=== PATIENT | male | born 1935 | race Caucasian/White ===

== ENCOUNTER 2016-10-16 03:32 | Emergency (ER) | payer MEDICARE, OTHER ==
[2016-10-16 03:38] VITALS: BP 147/82
[2016-10-16] MEDS ORDERED: DEXAMETHASONE SOD PHOSPHATE 10 MG/ML VIAL IM ONE (03:56)
[2016-10-16] MEDS ORDERED: METHYLPREDNISOLONE ACETATE 80 MG/ML VIAL IM ONE (03:56)
[2016-10-16] MEDS ORDERED: DEXAMETHASONE SOD PHOSPHATE 10 MG/ML VIAL ONE (04:03)
[2016-10-16] MEDS ORDERED: METHYLPREDNISOLONE ACETATE 80 MG/ML VIAL ONE (04:03)
--- NOTE | 2016-10-16 04:04 | ERNOTE ---
Lower Extremity HPI - General Lower Extremities Pain: hip: left Time Seen by Provider: 10/16/16 03:54 Source: patient Exam Limitations: no limitations - Immun/Allergies/Home Medications Immunizations: IMMUNIZATION HX Immunizations Up to Date Yes History of Influenza Vaccine Yes Hx Pneumococcal Vaccination More Information Required Allergies/Adverse Reactions: Allergies Allergy/AdvReac Type Severity Reaction Status Date / Time oxycodone [From Percocet] Allergy Verified 10/16/16 03:38 Home Medications: HOME MEDICATIONS Amlodipine Besylate [Norvasc] 2.5 mg PO DAILY 10/16/16 [Last Taken Unknown] Aspirin [Aspir-Low] 81 mg PO DAILY 10/16/16 [Last Taken Unknown] Budesonide/Formoterol Fumarate [Symbicort 80-4.5 Mcg Inhaler] 10.2 gm IH DAILY 10/16/16 [Last Taken Unknown] Cyclobenzaprine HCl 10 mg PO PRN 10/16/16 [Last Taken Unknown] Diclofenac Sodium [Diclofenac 1% Topical Gel] 1 appl TP QID 10/16/16 [Last Taken Unknown] Diclofenac Sodium [Voltaren] 100 gm TP QID 10/16/16 [Last Taken Unknown] Fluticasone Furoate [Arnuity Ellipta] 100 mcg IH HS 10/16/16 [Last Taken Unknown ] Hydrochlorothiazide [Hydrodiuril] 25 mg PO DAILY 10/16/16 [Last Taken Unknown] Lisinopril [Zestril] 40 mg PO DAILY 10/16/16 [Last Taken Unknown] Loratadine [Claritin] 10 mg PO DAILY 10/16/16 [Last Taken Unknown] Montelukast Sodium [Singulair] 10 mg PO DAILY 10/16/16 [Last Taken Unknown] Pioglitazone HCl [Actos] 30 mg PO DAILY 10/16/16 [Last Taken Unknown] Potassium Chloride [Klor-Con] 20 meq PO DAILY 10/16/16 [Last Taken Unknown] Simvastatin [Zocor] 80 mg PO DAILY 10/16/16 [Last Taken Unknown] Triamcinolone Acetonide [Kenalog 0.5%] 1 appl TP BID 10/16/16 [Last Taken Unknown] - History of Present Illness Narrative: Pt states his "hip" has been bothering him since Saturday. He points to his left low back. Occurred: yesterday Method of Injury: Reports: unknown Modifying Factors - (Improves): Reports: immobilization Modifying Factors - (Worsens): Reports: movement Subsequent Symptoms: Denies: sensory loss, bowel/bladder problem Review of Systems - Review of Systems Constitutional: Absent: recent illness, fever EYE: Present: no symptoms reported ENT: Absent: nose congestion, sore throat Respiratory: Absent: shortness of breath, cough Cardiology: Absent: chest pain, edema Gastrointestinal/Abdominal: Absent: nausea, vomiting Genitourinary: Absent: frequency, pain Musculoskeletal: Present: See HPI Skin: Absent: rash Neurological: Present: weakness - due to pain. Absent: numbness, tingling Endocrine: Present: no symptoms reported Hematologic/Lymphatic: Present: no symptoms reported Psych: Present: no symptoms reported - Patient's Past Medical History Patient History - Medical: Diabetes Type 2 Patient History - Cardiac/Respiratory: No pertinent hx Patient History - Cancer: No Hx of Cancer Patient History - Surgical Procedures: No surgical history Patient History - Other: None - Social History Living Situations: home Abuse History: No History of abuse Psych History: No pertinent hx Smoking Status: Former smoker Have you smoked in the past 12 months: No Alcohol Use: none Drug Use: none - Immunizations Immunizations Up to Date: Yes Hx Pneumococcal Vaccination: More Information Required to Determine History of Influenza Vaccine: Yes Physical Exam - Physical Exam General Appearance: Present: wd/wn, alert, no apparent distress Eye Exam: Normal inspection: bilateral Neck: Present: normal inspection, nontender Respiratory: Present: no respiratory distress, no accessory muscle use Back Exam: Present: normal inspection, no CVA tenderness, no vertebral tenderness, other - left SI tenderness Extremity Exam: Present: normal range of motion, no edema, other - b/l knee enlargement Neurological Exam: Present: alert, oriented, normal mood/affect, no motor/ sensory deficits Skin Exam: Present: normal color, warm/dry Lymphatic Exam: Present: no adenopathy ED Progress - Vital Signs Vital Signs: Vital Signs 10/16/16 03:33 Temperature 36.5 C Pulse Rate 87 Respiratory 14 Rate Blood Pressure 147/82 O2 Sat by Pulse 93 Oximetry - Progress/Reassessment Chief Complaint: Hip Pain/Injury Departure Clinical Impression: Sacroiliac joint pain - Departure Disposition: Home self-care Condition: Good Instructions: Sacroiliac Joint Dysfunction Additional Instructions: you may use your diclofenac jel on the area 1-2 times a day for 3-4 days. See your regular doctor if not improving in 3-5 days Referrals: Eleazar Santos MD [Primary Care Provider] -
== END 2016-10-16 04:28 | disposition home or self-care (01) ==
LOC: ER 03:32
DX: M53.3 Sacrococcygeal disorders, not elsewhere classified (principal); E11.9 Type 2 diabetes mellitus without complications; Z87.891 Personal history of nicotine dependence

== ENCOUNTER 2019-11-15 22:22 | Observation (INO) ==
--- NOTE | 2019-11-15 22:56 | ERNOTE ---
Dyspnea - General Presenting Symptoms: shortness of breath Time Seen by Provider: 11/15/19 22:45 Source: patient Exam Limitations: no limitations - Immun/Allergies/Home Medications Immunizations: IMMUNIZATION HX Immunizations Up to Date Yes History of Influenza Vaccine No Hx Pneumococcal Vaccination No Allergies/Adverse Reactions: Allergies naproxen [From Anaprox] Allergy (Mild, Verified 11/16/19 04:20) itching acetaminophen [From Darvocet-N 100] Allergy (Verified 11/16/19 04:20) itching metformin Allergy (Verified 11/16/19 04:20) unknown intolerance oxycodone [From Percocet] Allergy (Verified 11/16/19 04:20) propoxyphene [From Darvocet-N 100] Allergy (Verified 11/16/19 04:20) itching Home Medications: HOME MEDICATIONS Budesonide/Formoterol Fumarate [Symbicort 80-4.5 Mcg Inhaler] 10.2 gm IH DAILY 10/16/16 [Last Taken Unknown] Fluticasone Furoate [Arnuity Ellipta] 100 mcg IH HS 10/16/16 [Last Taken Unknown] Loratadine [Claritin] 10 mg PO DAILY 10/16/16 [Last Taken Unknown] pioglitazone 30 mg tablet 30 mg PO DAILY #90 tab 05/19/18 [Last Taken Unknown] ipratropium 0.5 mg-albuterol 3 mg (2.5 mg base)/3 mL nebulization soln 3 ml IH Q6H PRN #180 ml 09/05/18 [Last Taken Unknown] losartan 50 mg tablet 50 mg PO DAILY #90 tab 09/11/18 [Last Taken Unknown] potassium chloride 20 mEq tablet,extended release(part/cryst) 20 meq PO DAILY #0.1 tab 09/11/18 [Last Taken Unknown] montelukast 10 mg tablet See Rx Instructions .ROUTE .COMPLEX #30 tablet 12/09/18 [Last Taken Unknown] hydrochlorothiazide 25 mg tablet See Rx Instructions .ROUTE .COMPLEX #30 tablet 02/11/19 [Last Taken Unknown] albuterol sulfate 90 mcg/actuation breath activated powder inhaler 180 mcg IH Q4H PRN #1 ea 04/27/19 [Last Taken Unknown] codeine 10 mg-guaifenesin 100 mg/5 mL oral liquid 5 ml PO Q6H PRN #120 ml 04/27/19 [Last Taken Unknown] amlodipine 2.5 mg tablet 2.5 mg PO DAILY #90 tab 07/20/19 [Last Taken Unknown] predniSONE [Prednisone] 1 tab PO TID #15 tab 11/10/19 [Last Taken Unknown] Triamcinolone Acetonide [Kenalog 0.1% Cream] 1 applic TOPICAL TID 11/15/19 [Last Taken Unknown] - History of Present Illness Narrative: Patient states that he has been having shortness of breath he states he was here 2 days ago diagnosed with a asthma attack given 3 days of prednisone. States he has 1 more day left. He continues to have a nonproductive cough and have respiratory symptoms. He denies fever. Severity: mild, moderate Frequency of episodes: Reports: occassional episodes Modifying Factors (Worsens): Reports: coughing Prior Treatment: Reports: recently seen, treated by physician Review of Systems - Review of Systems Constitutional: Present: recent illness. Absent: fever, chills ENT: Absent: nose congestion, nasal drainage Respiratory: Present: See HPI, shortness of breath, cough Cardiology: Absent: chest pain Gastrointestinal/Abdominal: Absent: nausea, vomiting Genitourinary: Absent: frequency, dysuria Musculoskeletal: Absent: back pain, muscle pain Skin: Absent: rash Neurological: Absent: headache, dizziness/light-headedness Endocrine: Absent: excessive sweating Medical History (Last Reviewed 11/15/19 @ 22:53 by Julio Vincent DO) Renal insufficiency (Chronic) DJD (degenerative joint disease) of knee (Chronic) Type II diabetes mellitus (Chronic) Asthma, mild persistent Cardiomegaly Chronic upper back pain Diabetes type 2, controlled Diabetic foot ulcer Epistaxis Gout Hernia, hiatal Hyperlipidemia Hypertension Renal failure Rhinitis, chronic Squamous cell carcinoma of right ear Venous insufficiency of both lower extremities Surgical History: Surgical History (Last Reviewed 11/15/19 @ 22:54 by Julio Vincent DO) History of total knee arthroplasty (Acute) No history of previous surgery H/O total knee replacement Onset Date: ~11/2018 Family History: Family History (Last Reviewed 11/15/19 @ 22:54 by Julio Vincent DO) Mother Migraines Social History: (Last Reviewed 11/15/19 @ 22:54 by Julio Vincent DO) Social History: Marital status: household members: spouse current occupational status: retired Service: Yes Service comment: [employer] Tobacco: Smoking Status: Former smoker how long ago did patient quit smoking: was 4 PPD smoker, and 2 cans chew per day Alcohol: alcohol intake: former Substance Use: substance use type: does not use Dietary Habits: caffeine: Yes high-fat food intake: 3 or more times/day Exercise: Physical activity type: walking Physical Exam - Physical Exam General Appearance: Present: wd/wn, alert, no apparent distress Head Exam: Present: normal inspection, no evidence of injury Neck: Present: normal inspection, nontender, supple Respiratory: Present: no respiratory distress, normal breath sounds, lungs clear Cardiovascular/Chest: Present: no murmur, tachycardia Extremity Exam: Present: normal inspection, normal range of motion, no edema Neurological Exam: Present: alert, oriented, normal mood/affect, no motor/sensory deficits Skin Exam: Present: normal color, warm/dry Lymphatic Exam: Present: no adenopathy Progress - Results and Orders Patient's Lab Results:: I have reviewed the patient's lab results. Results and Orders: Laboratory Tests 11/15/19 11/15/19 11/15/19 23:10 23:10 23:10 WBC 10.1 Hgb 16.3 Hct 47.4 Plt Count 159 Neutrophils % 80.1 H Sodium 132 Potassium 3.3 L Chloride 96 L Carbon Dioxide 27.8 BUN 21 D Creatinine 1.43 H Est GFR (Non-Af Amer) 50 L D Random Glucose 145 H Lactic Acid, Venous 2.1 H Calcium 8.8 Total Bilirubin 0.9 AST 47 ALT 55 Troponin I Less than 0.017 B-Natriuretic Peptide 160 Laboratory Tests 11/16/19 01:13 SARS-CoV-2 (PCR) Detected - Vital Signs Patient's Vital Signs:: I have reviewed the patient's vital signs. Vital Signs: Vital Signs 11/15/19 22:25 Temperature 37.0 C Pulse Rate 103 H Respiratory Rate 20 Blood Pressure 148/79 O2 Sat by Pulse Oximetry 93 - EKG EKG #1 EKG: NSR, nonspecific ST T wave changes EKG read: Interp. by me - X-Ray X-Ray #1 X-Ray: chest Interpretation: Interp. by me X-ray Comments: There may be some early infiltrate in the right lower lobe. Cardiac silhouette appears normal. No pleural effusions, no pneumothorax. - CT/Ultrasound CT/Ultrasound Narrative: CTA chest. 1. Limited exam, no definite pulmonary embolism. 2. Atelectatic changes and nonspecific groundglass changes bilaterally. - Progress/Reassessment Chief Complaint: Dyspnea Progress:: Unchanged Progress Note-Subjective: 11/15/19 23:47 Patient is having increased shortness of breath with any activity, just to get out to the wheelchair to go to radiology. His respiratory rate is 21-25 and his oxygen saturations dropped to mid to high 80s when he has any activity. His blood pressures have remained elevated. 11/16/19 00:07 Patient's last 2 blood pressures are mildly high but much lower than previous, I had ordered hydralazine we will cancel that. D-dimer came back positive CTA was ordered. 11/16/19 01:[address] Bush about admission. He agrees with admission. We will COVID-[address] results suggesting groundglass appearance in bilateral bases and patient's overall respiratory complaints. Departure Clinical Impression: COVID-19 - Departure Disposition: Still a patient Condition: Stable
[2019-11-15 23:13] LABS: Hematocrit 47.4 % (42.0-52.0); Hemoglobin 16.3 gm/dL (13.5-18.0); Mean Cell Volume 88.9 fl (78-100); Mean Corpuscular Hemoglobin 30.6 pg (27-31); Mean Corpuscular Hgb Conc 34.4 g/dl (32-36); Mean Platelet Volume 10.2 fl (8-11.3); Neutrophil # 8.1 K/mm3 (1.3-6.0); Neutrophil % 80.1 % (42-75.0); Platelet Count 159 K/mm3 (150-450); Red Blood Count 5.33 M/mm3 (4.7-6.0); Red Cell Distribution Width 13.5 % (11.5-14.0); White Blood Count 10.1 K/mm3 (4.0-10.5)
[2019-11-15 23:32] LABS: Troponin I Less than 0.017 ng/mL (0.00-0.10)
[2019-11-15 23:34] LABS: ALT 55 U/L (19-67); AST 47 U/L (0-48); Albumin * 3.2 gm/dl (3.4-5.0); Alkaline Phosphatase * 63 U/L (50-170); Anion Gap 11.5 mmol/L (6.8-13.8); BNP * 160 pg/mL (5-650); BUN/Creatinine Ratio 14.7 (9.0-21.6); Bilirubin, Total 0.9 mg/dL (0.0-1.1); Blood Urea Nitrogen 21 mg/dL (6-23); Ca. Corrected For Albumin 9.1 mg/dL (8.4-10.2); Calcium * 8.8 mg/dL (7.9-10.9); Carbon Dioxide 27.8 mmol/L (24-32.6); Chloride 96 mmol/L (97-106); Glucose * 145 mg/dL (70-110); Potassium 3.3 mmol/L (3.4-4.6); Sodium 132 mmol/L (132-142); Total Protein 7.7 gm/dL (6.2-8.2)
[2019-11-15] MEDS ORDERED: hydrALAZINE HCL 20 MG/ML VIAL IV ONE (23:58)
[2019-11-16] MEDS ORDERED: ALBUTEROL SULFATE/IPRATROPIUM 3 ML NEBU IH PRN (12:31)
[2019-11-16] MEDS ORDERED: ALBUTEROL SULFATE 2.5 MG/0.5 ML VIAL.NEB IH PRN (12:31)
--- NOTE | 2019-11-16 12:55 | HP ---
Chief Complaint - Chief Complaint Date of Service: 11/16/19 Time of Service: 11:30 Chief Complaint: Nonproductive cough, shortness of breath History of Present Illness: Jerry Jeff is an 84-year-old male presented to ER earlier this morning with shortness of breath and intractable coughing. His cough is been nonproductive and he states he has been afebrile. He believes that he is having more difficulty smelling and tasting foods. The COVID-19 testing done in ER shows it is detected. He was admitted to room 126 earlier this morning. His admission vital signs show temperature of 37.0, BP 156/88, pulse has ranged from 78-98 since admission, respirations are 18-20 and unlabored, and O2 sat is 98%. Lab: His white count is normal at 10,100 with 80% neutrophils and no stabs. The hemoglobin is 16.3 g and hematocrit is 47.4%. The d-dimer was elevated slightly at 0.66. The electrolytes show sodium 132, chloride 96, CO2 of 27.8, and potassium at 3.3. Renal function studies show BUN is 21, creatinine 1.43, EGFR = 50, the LFTs are normal. Lactic acid was barely elevated at 2.1, the total protein is normal at 7.7 and albumin slightly low at 3.2. His initial chest x- ray is interpreted as no acute cardiopulmonary circumstance by the radiologist. The CT of the chest however shows pneumonia versus atelectasis in the right lower lobe. There was no PE detected on CT to explain the mildly elevated d- dimer. Exam shows no respiratory distress but with frequent dry hacking coughing. He is 98% on room air. I would put him in the moderate infection category for COVID-19. He is symptomatic. His risk factors for worsening include age of 84, COPD and asthma. He has essential hypertension and stage III chronic kidney disease. Medical History (Last Updated 11/16/19 @ 07:08 by Margie Negron RN) Asthma, mild persistent Cardiomegaly Chronic upper back pain Diabetes type 2, controlled Diabetic foot ulcer Epistaxis Gout Hernia, hiatal Hyperlipidemia Hypertension Renal failure Rhinitis, chronic Squamous cell carcinoma of right ear Venous insufficiency of both lower extremities DJD (degenerative joint disease) of knee Renal insufficiency Type II diabetes mellitus Surgical History: Surgical History (Last Reviewed 11/16/19 @ 07:08 by Margie Negron RN) History of total knee arthroplasty (Acute) H/O total knee replacement Onset Date: ~11/2018 Family History: Family History (Last Reviewed 11/16/19 @ 07:08 by Margie Negron RN) Mother Migraines Social History: (Last Reviewed 11/16/19 @ 07:11 by Margie Negron RN) Social History: Marital status: / lives independently: Yes household members: spouse, none current occupational status: retired Service: Yes Service comment: [employer] Tobacco: Smoking Status: Former smoker how long ago did patient quit smoking: was 4 PPD smoker, and 2 cans chew per day Alcohol: alcohol intake: former Substance Use: substance use type: does not use Dietary Habits: caffeine: Yes high-fat food intake: 3 or more times/day Exercise: Physical activity type: walking Review Of Systems (GEN) - Review of Systems Generalized/Overall Review: Present: Malaise EENTM: Present: No Symptoms Reported Respiratory: Present: Cough, Shortness of Breath Cardiac: Present: No Symptoms Reported Abdominal: Present: No Symptoms Reported Genitourinary: Present: No Symptoms Reported Musculoskeletal: Present: No Symptoms Reported Neurological: Present: No Symptoms Reported, Other - Decreased ability to smell or taste. Skin: Present: No Symptoms Reported Endocrine: Present: No Symptoms Reported Immunizations: IMMUNIZATION HX Immunizations Up to Date Yes History of Influenza Vaccine No Hx Pneumococcal Vaccination No Allergies/Adverse Reactions: Allergies Allergy/AdvReac Type Severity Reaction Status Date / Time naproxen [From Anaprox] Allergy Mild itching Verified 11/16/19 04:20 acetaminophen Allergy itching Verified 11/16/19 04:20 [From Darvocet-N 100] metformin Allergy unknown Verified 11/16/19 04:20 intolerance oxycodone [From Percocet] Allergy Verified 11/16/19 04:20 propoxyphene Allergy itching Verified 11/16/19 04:20 [From Darvocet-N 100] Home Medications: HOME MEDICATIONS Budesonide/Formoterol Fumarate [Symbicort 80-4.5 Mcg Inhaler] 10.2 gm IH DAILY 10/16/16 [Last Taken Unknown] Fluticasone Furoate [Arnuity Ellipta] 100 mcg IH HS 10/16/16 [Last Taken Unknown] Loratadine [Claritin] 10 mg PO DAILY 10/16/16 [Last Taken Unknown] pioglitazone 30 mg tablet 30 mg PO DAILY #90 tab 05/19/18 [Last Taken Unknown] ipratropium 0.5 mg-albuterol 3 mg (2.5 mg base)/3 mL nebulization soln 3 ml IH Q6H PRN #180 ml 09/05/18 [Last Taken Unknown] losartan 50 mg tablet 50 mg PO DAILY #90 tab 09/11/18 [Last Taken 11/15/19] potassium chloride 20 mEq tablet,extended release(part/cryst) 20 meq PO DAILY #0.1 tab 09/11/18 [Last Taken Unknown] albuterol sulfate 90 mcg/actuation breath activated powder inhaler 180 mcg IH Q4H PRN #1 ea 04/27/19 [Last Taken 11/15/19] codeine 10 mg-guaifenesin 100 mg/5 mL oral liquid 5 ml PO Q6H PRN #120 ml [Last Taken Unknown] amlodipine 2.5 mg tablet 2.5 mg PO DAILY #90 tab 07/20/19 [Last Taken 11/15/19] predniSONE [Prednisone] 1 tab PO TID #15 tab 11/10/19 [Last Taken 11/15/19] Triamcinolone Acetonide [Kenalog 0.1% Cream] 1 applic TOPICAL TID 11/15/19 [Last Taken Unknown] Hydrochlorothiazide [Hydrodiuril] 25 mg PO DAILY 11/16/19 [Last Taken 11/15/19] Montelukast Sodium [Singulair] 10 mg PO HS 11/16/19 [Last Taken 11/15/19] Exam - Exam Vital Signs: Vital Signs - Last Taken Temp 37 C 11/16/19 10:21 Pulse 98 11/16/19 10:21 Resp 20 11/16/19 10:21 BP 156/88 H 11/16/19 10:21 Pulse Ox 98 11/16/19 10:21 Constitutional: Present: Alert, Oriented x3, Cooperative, Well developed, Well nourished, Mild distress ENT Exam: Present: normal ENT inspection, hearing grossly normal, pharynx normal Eye Exam: bilateral eye: normal inspection, PERRL, EOMI Neck: Present: non-tender, limited range of motion Back Exam: Present: normal inspection, no CVA tenderness, no vertebral tend erness, decreased range of motion Respiratory: Present: chest non-tender, lungs clear, normal breath sounds, no respiratory distress, no accessory muscle use Cardiovascular/Chest: Present: normal peripheral pulses, regular rate, rhythm, no chest tenderness, no edema, no gallop, no JVD, no murmur, no rub Peripheral Pulses: carotid (R): 2+, carotid (L): 2+, radial (R): 2+, radial (L): 2+ Abdomen: Present: Normal bowel sounds, soft, nontender, nondistended, no rebound tenderness, no hepatospenomegaly, no masses, obese /Rectal: Present: Exam deferred, External genitalia normal Extremity: Present: normal range of motion, non-tender, normal inspection, no pedal edema, no calf tenderness Skin Exam: Present: normal color, warm/dry, no cyanosis Lymphatic: Present: no adenopathy 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, normal cerebellar test, no motor/sensory deficits, alert, normal mood/affect Appearance: Present: appropriate appearance, appropriate insight, neat, no memory impairment Eye contact: Present: cooperative, good eye contact, normal speech Thoughts: Present: normal thought pattern, no apparent hallucination Diagnostic Studies: Abnormal Lab Results 11/15/19 11/15/19 11/15/19 Range/Units 23:10 23:10 23:10 Neutrophils % 80.1 H (42-75.0) % Lymphocytes % 7.3 L (20-51) % Monocytes % 12.0 H (0.0-9) % Neutrophils # 8.1 H (1.3-6.0) K/mm3 Lymphocytes # 0.74 L (1.5-3.5) k/mm3 Monocytes # 1.2 H (0.0-1.0) k/mm3 D-Dimer 0.66 H (0.19-0.49) ug/mL Potassium 3.3 L (3.4-4.6) mmol/L Chloride 96 L (97-106) mmol/L Creatinine 1.43 H (0.4-1.4) mg/dL Est GFR (Non-Af Amer) 50 L D (60-130) mL/min Random Glucose 145 H (70-110) mg/dL Lactic Acid, Venous (0.4-2.0) mmol/L Albumin 3.2 L (3.4-5.0) gm/dl 11/15/19 Range/Units 23:10 Neutrophils % (42-75.0) % Lymphocytes % (20-51) % Monocytes % (0.0-9) % Neutrophils # (1.3-6.0) K/mm3 Lymphocytes # (1.5-3.5) k/mm3 Monocytes # (0.0-1.0) k/mm3 D-Dimer (0.19-0.49) ug/mL Potassium (3.4-4.6) mmol/L Chloride (97-106) mmol/L Creatinine (0.4-1.4) mg/dL Est GFR (Non-Af Amer) (60-130) mL/min Random Glucose (70-110) mg/dL Lactic Acid, Venous 2.1 H (0.4-2.0) mmol/L Albumin (3.4-5.0) gm/dl Laboratory Results WBC 10.1 K/mm3 (4.0-10.5) 11/15/19 23:10 RBC 5.33 M/mm3 (4.7-6.0) 11/15/19 23:10 Hgb 16.3 gm/dL (13.5-18.0) 11/15/19 23:10 Hct 47.4 % (42.0-52.0) 11/15/19 23:10 MCV 88.9 fl (78-100) 11/15/19 23:10 MCH 30.6 pg (27-31) 11/15/19 23:10 MCHC 34.4 g/dl (32-36) 11/15/19 23:10 RDW 13.5 % (11.5-14.0) 11/15/19 23:10 Plt Count 159 K/mm3 (150-450) 11/15/19 23:10 MPV 10.2 fl (8-11.3) 11/15/19 23:10 Immature Gran % (Auto) 0.30 % (0.001-0.429) 11/15/19 23:10 Immature Gran # (Auto) 0.03 K/mm3 (0.000-0.0310) 11/15/19 23:10 Neutrophils % 80.1 % (42-75.0) H 11/15/19 23:10 Lymphocytes % 7.3 % (20-51) L 11/15/19 23:10 Monocytes % 12.0 % (0.0-9) H 11/15/19 23:10 Eosinophils % 0.1 % (0.0-3.0) 11/15/19 23:10 Basophils % 0.2 % (0.0-1.0) 11/15/19 23:10 Nucleated RBC % 0.0 k/mm3 (0-1) 11/15/19 23:10 Neutrophils # 8.1 K/mm3 (1.3-6.0) H 11/15/19 23:10 Lymphocytes # 0.74 k/mm3 (1.5-3.5) L 11/15/19 23:10 Monocytes # 1.2 k/mm3 (0.0-1.0) H 11/15/19 23:10 Eosinophils # 0.0 k/mm3 (0.0-0.7) 11/15/19 23:10 Absolute Basophils 0.0 k/mm3 (0.0-0.1) 11/15/19 23:10 D-Dimer 0.66 ug/mL (0.19-0.49) H 11/15/19 23:10 Sodium 132 mmol/L (132-142) 11/15/19 23:10 Plasma Sodium 133 mmol/L (130-142) 11/15/19 23:10 Potassium 3.3 mmol/L (3.4-4.6) L 11/15/19 23:10 Chloride 96 mmol/L (97-106) L 11/15/19 23:10 Carbon Dioxide 27.8 mmol/L (24-32.6) 11/15/19 23:10 Anion Gap 11.5 mmol/L (6.8-13.8) 11/15/19 23:10 BUN 21 mg/dL (6-23) D 11/15/19 23:10 Creatinine 1.43 mg/dL (0.4-1.4) H 11/15/19 23:10 Est GFR (Non-Af Amer) 50 mL/min (60-130) L D 11/15/19 23:10 BUN/Creatinine Ratio 14.7 (9.0-21.6) 11/15/19 23:10 Random Glucose 145 mg/dL (70-110) H 11/15/19 23:10 Lactic Acid, Venous 1.9 mmol/L (0.4-2.0) 11/16/19 02:45 Calcium 8.8 mg/dL (7.9-10.9) 11/15/19 23:10 Calcium Adj for Albumin 9.1 mg/dL (8.4-10.2) 11/15/19 23:10 Total Bilirubin 0.9 mg/dL (0.0-1.1) 11/15/19 23:10 AST 47 U/L (0-48) 11/15/19 23:10 ALT 55 U/L (19-67) 11/15/19 23:10 Alkaline Phosphatase 63 U/L (50-170) 11/15/19 23:10 Troponin I Less than 0.017 ng/mL (0.00-0.10) 11/15/19 23:10 B-Natriuretic Peptide 160 pg/mL (5-650) 11/15/19 23:10 Total Protein 7.7 gm/dL (6.2-8.2) 11/15/19 23:10 Albumin 3.2 gm/dl (3.4-5.0) L 11/15/19 23:10 SARS-CoV-2 (PCR) Detected (ND) 11/16/19 01:13
[2019-11-16] MEDS ORDERED: IPRATROPIUM/ALBUTEROL SULFATE 120 PUFF INHALER IH PRN (13:00)
[2019-11-16] MEDS ORDERED: TRIAMCINOLONE ACETONIDE 15 APPL TUBE TP SCH (13:00)
[2019-11-16] MEDS ORDERED: ALBUTEROL SULFATE 60 PUFF INHALER IH PRN (13:00)
[2019-11-16] MEDS: CODEINE PHOSPHATE/GUAIFENESIN 5 ML UDC PO PRN ×2 (13:18→19:49)
[2019-11-16] MEDS: PIOGLITAZONE HCL 15 MG TABLET PO SCH (13:19)
[2019-11-16] MEDS: HYDROCHLOROTHIAZIDE 25 MG TABLET PO SCH (13:19)
[2019-11-16] MEDS: POTASSIUM CHLORIDE 20 MEQ TABLET.SA PO SCH (13:19)
[2019-11-16] MEDS: ENOXAPARIN SODIUM 40 MG/0.4 ML SYRG SC SCH (13:19)
[2019-11-16] MEDS: LOSARTAN POTASSIUM 50 MG TABLET PO SCH (13:20)
[2019-11-16] MEDS: LORATADINE 10 MG TABLET PO SCH (13:20)
[2019-11-16] MEDS: TRIAMCINOLONE ACETONIDE 80 APPL TUBE TP SCH ×2 (13:21→16:18)
[2019-11-16] MEDS: predniSONE 20 MG TABLET PO SCH ×2 (13:22→16:17)
[2019-11-16] MEDS: MONTELUKAST SODIUM 10 MG TABLET PO SCH ×2 (19:58→20:09)
[2019-11-16] MEDS: BUDESONIDE IH SCH ×2 (19:58→20:09)
[2019-11-16] MEDS: FLUTICASONE PROPION/SALMETEROL 14 PUFF DISK.W.DEV IH SCH ×2 (19:58→20:09)
[2019-11-17] MEDS: CODEINE PHOSPHATE/GUAIFENESIN 5 ML UDC PO PRN ×2 (05:04→11:19)
[2019-11-17 06:31] LABS: Hematocrit 51.9 % (42.0-52.0); Hemoglobin 17.4 gm/dL (13.5-18.0); Mean Cell Volume 89.6 fl (78-100); Mean Corpuscular Hemoglobin 30.1 pg (27-31); Mean Corpuscular Hgb Conc 33.5 g/dl (32-36); Mean Platelet Volume 10.2 fl (8-11.3); Neutrophil % 75.2 % (42-75.0); Platelet Count 180 K/mm3 (150-450); Red Blood Count 5.79 M/mm3 (4.7-6.0); Red Cell Distribution Width 13.8 % (11.5-14.0); White Blood Count 9.3 K/mm3 (4.0-10.5)
[2019-11-17 06:44] LABS: Albumin * 3.2 gm/dl (3.4-5.0); Anion Gap 10.7 mmol/L (6.8-13.8); BUN/Creatinine Ratio 14.5 (9.0-21.6); CRP 5.2 mg/dL (0.0-0.9); Calcium * 8.7 mg/dL (7.9-10.9); Carbon Dioxide 32.8 mmol/L (24-32.6); Potassium 3.5 mmol/L (3.4-4.6); Total Protein 8.2 gm/dL (6.2-8.2)
[2019-11-17] MEDS: predniSONE 20 MG TABLET PO SCH ×3 (08:35→16:38)
[2019-11-17] MEDS: amLODIPine BESYLATE 5 MG TABLET PO SCH (08:35)
[2019-11-17] MEDS: LOSARTAN POTASSIUM 50 MG TABLET PO SCH (08:36)
[2019-11-17] MEDS: LORATADINE 10 MG TABLET PO SCH (08:37)
[2019-11-17] MEDS: POTASSIUM CHLORIDE 20 MEQ TABLET.SA PO SCH (08:37)
[2019-11-17] MEDS: PIOGLITAZONE HCL 15 MG TABLET PO SCH (08:38)
[2019-11-17] MEDS: FLUTICASONE PROPION/SALMETEROL 14 PUFF DISK.W.DEV IH SCH ×2 (08:40→20:57)
[2019-11-17] MEDS: BUDESONIDE IH SCH ×2 (08:41→20:58)
[2019-11-17] MEDS: TRIAMCINOLONE ACETONIDE 80 APPL TUBE TP SCH ×3 (08:43→17:27)
[2019-11-17] MEDS: HYDROCHLOROTHIAZIDE 25 MG TABLET PO SCH (08:45)
[2019-11-17] MEDS: ENOXAPARIN SODIUM 40 MG/0.4 ML SYRG SC SCH (11:20)
--- NOTE | 2019-11-17 12:53 | PN ---
Subjective - Date and Time Seen Date: 11/17/19 Time: 08:00 Subjective Narrative: Jerry says he thinks he might be feeling a little better than yesterday but not a lot better. He is in no distress at the time of my exam although he is coughing some with almost every breath. His heart rate has increased and his respiratory rate has increased to 24. He remains afebrile. Blood pressure is better controlled since getting started back on his usual medicines. The white count remains normal. Renal status is unchanged and EGFR remains at 50. Electrolytes are normal. The procalcitonin is normal at 0.08 and probably rules out a secondary bacterial process. His lungs sound some better. I do not hear the rhonchi heard yesterday but he still has some fine crackles and especially in the right posterior chest. I do not hear any wheezing. He is coughing with every deep breath I asked him to take. There are no signs of vascular problems. The chest x-ray is an AP chest only. Radiologist is reading a left lower lobe consolidation atelectasis versus infiltrate. This is different than the initial chest x-ray which did not show any acute process. Objective - Review of Systems Generalized/Overall Review: Reports: Weakness, Malaise EENTM: Reports: No Symptoms Reported Respiratory: Reports: Cough, Shortness of Breath Cardiac: Reports: No Symptoms Reported Abdominal: Reports: No Symptoms Reported Genitourinary Symptoms: Reports: No Symptoms Reported Musculoskeletal Complaints: Reports: No Symptoms Reported Neurological: Reports: No Symptoms Reported Skin: Reports: No Symptoms Reported Endocrine: Reports: No Symptoms Reported Misc: All systems neg except as marked - Vitals Vitals: Last Vital Signs Temp 37.6 C 11/17/19 11:04 Pulse 93 11/17/19 11:04 Resp 20 11/17/19 11:04 BP 122/66 11/17/19 11:04 Pulse Ox 98 11/17/19 11:04 - Abnormal Lab Findings Abnormal Lab Findings: Abnormal Lab Results 11/17/19 11/17/19 11/17/19 Range/Units 06:25 06:25 06:25 Immature Gran # (Auto) 0.04 H (0.000-0.0310) K/mm3 Neutrophils % 75.2 H (42-75.0) % Lymphocytes % 15.6 L (20-51) % Neutrophils # 7.0 H (1.3-6.0) K/mm3 Lymphocytes # 1.45 L (1.5-3.5) k/mm3 ESR 61 H (0-10) mm/hr Chloride 94 L (97-106) mmol/L Carbon Dioxide 32.8 H (24-32.6) mmol/L Creatinine 1.45 H (0.4-1.4) mg/dL Est GFR (Non-Af Amer) 50 L (60-130) mL/min Random Glucose 129 H (70-110) mg/dL AST 56 H (0-48) U/L C-Reactive Prot, Quant 5.2 H (0.0-0.9) mg/dL Albumin 3.2 L (3.4-5.0) gm/dl - EKG/Xray Findings Interpretation: Reviewed by me - Exam Constitutional: Present: Alert, Oriented x3, Cooperative, Well developed, Well nourished, No distress ENT Exam: Present: normal ENT inspection, hearing grossly normal, pharynx normal, TMs normal Neck: Present: non-tender, supple, limited range of motion Breasts: Present: Exam deferred Respiratory: Present: chest non-tender, crackles, rales Cardiovascular/Chest: Present: normal peripheral pulses, regular rate, rhythm, no chest tenderness, no edema, no gallop, no JVD, no murmur, no rub Abdomen: Present: Normal bowel sounds, soft, nontender, nondistended, no rebound tenderness, no hepatospenomegaly, no masses /Rectal: Present: Exam deferred Extremity: Present: normal range of motion, non-tender, normal inspection, no pedal edema, no calf tenderness Skin Exam: Present: normal color, warm/dry, no cyanosis Lymphatic: Present: no adenopathy Neurologic: Present: insight leader II-XII nml as tested, normal cerebellar test, no motor/sensory deficits, alert, normal mood/affect Appearance: Present: appropriate appearance, appropriate insight, neat, no memory impairment Eye contact: Present: cooperative, good eye contact, normal speech Thoughts: Present: normal thought pattern, no apparent hallucination Assessment/Plan Plan Narrative: Because of the increased respiratory rate and increased heart rate to 100 bpm and the new appearance of the pneumonia which is either consolidation atelectasis or infiltrate in the left lung I have elected to keep him another day. Reassess tomorrow morning. - Problems/Diagnosis (1) COVID-19 Problem: Acute (2) COPD (chronic obstructive pulmonary disease) Problem: Chronic Qualifiers: COPD type: COPD with acute lower respiratory infection Qualified Code(s): J44.0 - Chronic obstructive pulmonary disease with (acute) lower respiratory infection (3) Asthma Problem: Chronic Qualifiers: Asthma severity: mild Asthma persistence: intermittent Asthma c omplication type: with acute exacerbation Qualified Code(s): J45.21 - Mild intermittent asthma with (acute) exacerbation
[2019-11-17] MEDS: MONTELUKAST SODIUM 10 MG TABLET PO SCH (20:56)
[2019-11-18] MEDS: CODEINE PHOSPHATE/GUAIFENESIN 5 ML UDC PO PRN (01:33)
[2019-11-18] MEDS: PIOGLITAZONE HCL 15 MG TABLET PO SCH (08:15)
[2019-11-18] MEDS: FLUTICASONE PROPION/SALMETEROL 14 PUFF DISK.W.DEV IH SCH (08:15)
[2019-11-18] MEDS: LORATADINE 10 MG TABLET PO SCH (08:15)
[2019-11-18] MEDS: TRIAMCINOLONE ACETONIDE 80 APPL TUBE TP SCH (08:16)
[2019-11-18] MEDS: HYDROCHLOROTHIAZIDE 25 MG TABLET PO SCH (08:16)
[2019-11-18] MEDS: amLODIPine BESYLATE 5 MG TABLET PO SCH (08:16)
[2019-11-18] MEDS: POTASSIUM CHLORIDE 20 MEQ TABLET.SA PO SCH (08:16)
[2019-11-18] MEDS: LOSARTAN POTASSIUM 50 MG TABLET PO SCH (08:16)
[2019-11-18] MEDS: BUDESONIDE IH SCH (08:17)
[2019-11-18] MEDS: predniSONE 20 MG TABLET PO SCH (08:17)
--- NOTE | 2019-11-18 08:36 | DS ---
(1) COVID-19 Problem: Acute (2) COPD (chronic obstructive pulmonary disease) Problem: Chronic Qualifiers: COPD type: COPD with acute lower respiratory infection Qualified Code(s): J44.0 - Chronic obstructive pulmonary disease with (acute) lower respiratory infection (3) Asthma Problem: Chronic Qualifiers: Asthma severity: mild Asthma persistence: intermittent Asthma complication type: with acute exacerbation Qualified Code(s): J45.21 - Mild intermittent asthma with (acute) exacerbation Date of Discharge:: 11/18/19 Hospital Course: Jerry Jeff is an 84-year-old male who was admitted through ER following diagnosis of COVID-19 detected. He continues to have coughing after each deep breath but is in no respiratory distress. His respiratory rate has been 18-20 on admission it went up to 24 4 about 6 hours and then came back down to the rate of 20 and this morning his rate is 22. His oxygen saturations have stayed in the 97 to 98% range. I have placed him in the moderate infection category at this time because he is symptomatic but is not in any respiratory distress and there is been no vascular concerns. He is eating well. I have had a discussion with him about the natural history of COVID-19 and that most of the worse symptoms tend to appear in the second week. He will have home health seeing him and will monitor his oxygen saturations respiratory rate and lung sounds. Chest x-ray shows what appears to be a left lower lobe infiltrate yesterday which is different than the admission chest x-ray which did not show 1. The CT chest also raise the possibility of a pneumonia versus compression atelectasis. His white count has remained normal. His pro calcitonin yesterday was normal. He is feeling some better since admission. He will be discharged home. Jerry Paige is confined to home due to being infected with COVID-19. He will need to be quarantined to home for the next 2 weeks. The need for usp is for monitoring vital signs especially respiratory rate and oxygen saturations. They will also do diagnosis management education. The need for home health care skilled services is directly related to the time spent [id number] with the person Procedures Performed: none Plan of Treatment: He is to self quarantine for the next 2 weeks and stay at home. He should wear a mask at all times. Results and Findings: Pending Mircobiology Results 11/15/19 23:30 Blood Blood Culture - Preliminary NO GROWTH AFTER 48 HOURS 11/15/19 23:10 Blood Blood Culture - Preliminary NO GROWTH AFTER 48 HOURS Lab Pending Results 11/15/19 23:10: Sodium 132, Plasma Sodium 133, Potassium 3.3 L, Chloride 96 L, Carbon Dioxide 27.8, Anion Gap 11.5, BUN 21 D, Creatinine 1.43 H, Est GFR (Non- Af Amer) 50 L D, BUN/Creatinine Ratio 14.7, Random Glucose 145 H, Calcium 8.8, Calcium Adj for Albumin 9.1, Total Bilirubin 0.9, AST 47, ALT 55, Alkaline Phosphatase 63, Troponin I Less than 0.017, B-Natriuretic Peptide 160, Total Protein 7.7, Albumin 3.2 L 11/15/19 23:10: WBC 10.1, RBC 5.33, Hgb 16.3, Hct 47.4, MCV 88.9, MCH 30.6, MCHC 34.4, RDW 13.5, Plt Count 159, MPV 10.2, Immature Gran % (Auto) 0.30, Immature Gran # (Auto) 0.03, Neutrophils % 80.1 H, Lymphocytes % 7.3 L, Monocytes % 12.0 H, Eosinophils % 0.1, Basophils % 0.2, Nucleated RBC % 0.0, Neutrophils # 8.1 H, Lymphocytes # 0.74 L, Monocytes # 1.2 H, Eosinophils # 0.0, Absolute Basophils 0.0 11/15/19 23:10: D-Dimer 0.66 H 11/15/19 23:10: Lactic Acid, Venous 2.1 H 11/16/19 01:13: SARS-CoV-2 (PCR) Detected 11/16/19 02:45: Lactic Acid, Venous 1.9 11/17/19 06:25: WBC 9.3, RBC 5.79, Hgb 17.4, Hct 51.9, MCV 89.6, MCH 30.1, MCHC 33.5, RDW 13.8, Plt Count 180, MPV 10.2, Immature Gran % (Auto) 0.40, Immature Gran # (Auto) 0.04 H, Neutrophils % 75.2 H, Lymphocytes % 15.6 L, Monocytes % 8.5, Eosinophils % 0.1, Basophils % 0.2, Nucleated RBC % 0.0, Neutrophils # 7.0 H, Lymphocytes # 1.45 L, Monocytes # 0.8, Eosinophils # 0.0, Absolute Basophils 0.0 11/17/19 06:25: ESR 61 H 11/17/19 06:25: Sodium 134, Plasma Sodium 134, Potassium 3.5, Chloride 94 L, Carbon Dioxide 32.8 H, Anion Gap 10.7, BUN 21, Creatinine 1.45 H, Est GFR (Non- Af Amer) 50 L, BUN/Creatinine Ratio 14.5, Random Glucose 129 H, Calcium 8.7, Calcium Adj for Albumin 9.0, Total Bilirubin 1.0, AST 56 H, ALT 64, Alkaline Phosphatase 63, C-Reactive Prot, Quant 5.2 H, Total Protein 8.2, Albumin 3.2 L 11/17/19 06:25: Procalcitonin 0.08 Discharge Location: Home Disposition: Home Health Service Home Health Agency: [facility] Condition: Stable Discharge Activity: Activity as tolerated Discharge Diet: General/regular food Additional Patient Instructions (free text): Will be a TCM appointment. [facility] new, please call and fax discharge information to them. Complete Home Medications List: Complete Home Medication List: Budesonide/Formoterol Fumarate [Symbicort 80-4.5 Mcg Inhaler] 10.2 gm IH DAILY 10/16/16 Fluticasone Furoate [Arnuity Ellipta] 100 mcg IH HS 10/16/16 Loratadine [Claritin] 10 mg PO DAILY 10/16/16 pioglitazone 30 mg tablet 30 mg PO DAILY #90 tab 05/19/18 ipratropium 0.5 mg-albuterol 3 mg (2.5 mg base)/3 mL nebulization soln 3 ml IH Q6H PRN #180 ml 09/05/18 losartan 50 mg tablet 50 mg PO DAILY #90 tab 09/11/18 potassium chloride 20 mEq tablet,extended release(part/cryst) 20 meq PO DAILY #0.1 tab 09/11/18 albuterol sulfate 90 mcg/actuation breath activated powder inhaler 180 mcg IH Q4H PRN #1 ea 04/27/19 codeine 10 mg-guaifenesin 100 mg/5 mL oral liquid 5 ml PO Q6H PRN #120 ml 04/27/19 amlodipine 2.5 mg tablet 2.5 mg PO DAILY #90 tab 07/20/19 predniSONE [Prednisone] 1 tab PO TID #15 tab 11/10/19 Triamcinolone Acetonide [Kenalog 0.1% Cream] 1 applic TOPICAL TID 11/15/19 Hydrochlorothiazide [Hydrodiuril] 25 mg PO DAILY 11/16/19 Montelukast Sodium [Singulair] 10 mg PO HS 11/16/19 Forms: Patient Portal Registration
[2019-11-18 09:50] VITALS: BP 139/71
[2019-11-18] MEDS ORDERED: predniSONE 20 MG TABLET PO SCH (21:00)
== END 2019-11-18 10:25 | disposition home health service (06) ==
LOC: ER 22:22 → MS 11-16 02:33 → INTOOBSV 11-16 02:33 → MS 11-16 03:35
PROVIDERS: ADMIT Family Medicine; ATTEND Family Medicine
DX: J45.21 Mild intermittent asthma with (acute) exacerbation; J44.1 Chronic obstructive pulmonary disease with (acute) exacerbation; J12.89 Other viral pneumonia; Z87.891 Personal history of nicotine dependence; J44.0 Chronic obstructive pulmonary disease with (acute) lower respiratory infection; U07.1 COVID-19
CPT/HCPCS: 36415; 71010; 71020; 71045; 71046; 71275; 80053; 83519; 83605; 83880; 84145; 84484; 85025; 85379; 85652; 86140; 87040; 93005; 94760; 99285; C9803; G0378; Q9967